=== PATIENT | female | born 1955 | race Caucasian/White ===

== ENCOUNTER 2016-08-10 14:44 | Observation (INO) | payer OTHER ==
[2016-08-10] VITALS (8 sets, daily range): BP systolic 131–177; BP diastolic 71–81; PULSE 66–103; RESP 15–18; TEMP 97.6–98.2; O2SAT 96–99
[~2016-08-10 14:44] MED LIST: ALL220TA PO; BLACK COHOSH; CALC648T PO; FISH1000 PO; FLAXMIS; TAB-TAB PO; [UNRECOGNIZED DRUG - OTHER]
[2016-08-10] MEDS ORDERED: MULT1TAB46 PO (15:04)
[2016-08-10] MEDS ORDERED: MONT10TA2 PO (15:04)
--- NOTE | 2016-08-10 15:37 | PD ---
HPI Chief Complaint: Hypertension Time Seen by Provider: 15:17 Travel History International Travel<30 days: No Contact w/Intl Traveler<30days: No Traveled to known affect area: No History of Present Illness HPI The patient was seen and examined in the presence of the nurse. At 1:10 PM today this patient developed some aching across her jaw. She felt somewhat lightheaded and clammy at this time. She did not have any actual chest pain or pressure or tightness or heaviness. Things lasted about 5-10 minutes and resolve spontaneously. There were no alleviating factors. This was not exertionally induced. Severity was moderate. She has no history of cardiac disease. Never had stress testing. No history of jaw problems or injury or TMJ syndrome PFSH Past Medical History Medical History: Denies Significant Hx Diminished Hearing: No Influenza Vaccination: Yes ?: Not Menopausal: Yes Past Surgical History Oral Surgery: Yes (WISDOM TEETH) Other Surgery: Yes (EAR SURGERY AT AGE OF 12, PARATHYROID) Social History Alcohol Use: Yes (SOCIALLY) Tobacco Use: No Substance Use: No Allergies-Medications (Allergen,Severity, Reaction): Coded Allergies: Codeine (Verified Allergy, Severe, Nausea/Vomiting, 08/10/16) Reported Meds & Prescriptions Reported Meds & Active Scripts Active Reported Multi Vitamin Daily (Multiple Vitamin) 1 Tab Tab 1 Tab-Cap PO DAILY Singulair (Montelukast Sodium) 10 Mg Tab 10 Mg PO HS Review of Systems General / Constitutional: No: Fever Eyes: No: Visual changes HENT: Positive: Lightheadedness, No: Headaches Cardiovascular: No: Chest Pain or Discomfort Respiratory: No: Shortness of Breath Gastrointestinal: No: Abdominal Pain Genitourinary: No: Dysuria Musculoskeletal: Positive: Pain Skin: No Rash Neurologic: No: Weakness Psychiatric: No: Depression Endocrine: No: Polydipsia Hematologic/Lymphatic: No: Easy Bruising Physical Exam Narrative GENERAL: Well-nourished, well-developed patient in no apparent distress. SKIN: Focused skin assessment reveals no rash and nodules. Skin is Warm and dry. HEAD: Atraumatic. Normocephalic. EYES: Pupils equal and round. No scleral icterus. No injection or drainage. ENT: No nasal bleeding or discharge. Mucous membranes pink and moist. NECK: Trachea midline. No JVD. CARDIOVASCULAR: Regular rate and rhythm. No murmur appreciated. RESPIRATORY: No accessory muscle use. Clear to auscultation. Breath sounds equal bilaterally. GASTROINTESTINAL: Abdomen soft, non-tender, nondistended. Hepatic and splenic margins not palpable. MUSCULOSKELETAL: No obvious deformities. No clubbing. No cyanosis. No edema. NEUROLOGICAL: Awake and alert. No obvious cranial nerve deficits. Motor grossly within normal limits. Normal speech. PSYCHIATRIC: Appropriate mood and affect; insight and judgment normal. Data Data Last Documented VS Vital Signs Date Time Temp Pulse Resp B/P Pulse Ox O2 Delivery O2 Flow Rate FiO2 08/10/16 17:26 81 16 143/75 99 Room Air 08/10/16 16:50 97.8 Orders Electrocardiogram (08/10/16 15:33) Basic Metabolic Panel (Bmp) (08/10/16 15:33) Ckmb (Isoenzyme) Profile (08/10/16 15:33) Complete Blood Count With Diff (08/10/16 15:33) Prothrombin Time / Inr (Pt) (08/10/16 15:33) Act Partial Throm Time (Ptt) (08/10/16 15:33) Troponin I (08/10/16 15:33) Chest, Single Ap (08/10/16 15:33) Ecg Monitoring (08/10/16 15:33) Iv Access Insert/Monitor (08/10/16 15:33) Oximetry (08/10/16 15:33) Aspirin (Aspirin) (08/10/16 15:45) Sodium Chloride 0.9% Flush (Ns Flush) (08/10/16 15:45) Admit Order (Ed Use Only) (08/10/16 17:28) Labs Laboratory Tests Test 08/10/16 15:30 White Blood Count 8.2 TH/MM3 Red Blood Count 4.98 MIL/MM3 Hemoglobin 14.3 GM/DL Hematocrit 41.8 % Mean Corpuscular Volume 84.0 FL Mean Corpuscular Hemoglobin 28.7 PG Mean Corpuscular Hemoglobin 34.1 % Concent Red Cell Distribution Width 13.4 % Platelet Count 264 TH/MM3 Mean Platelet Volume 9.0 FL Neutrophils (%) (Auto) 60.6 % Lymphocytes (%) (Auto) 29.3 % Monocytes (%) (Auto) 7.4 % Eosinophils (%) (Auto) 1.9 % Basophils (%) (Auto) 0.8 % Neutrophils # (Auto) 5.0 TH/MM3 Lymphocytes # (Auto) 2.4 TH/MM3 Monocytes # (Auto) 0.6 TH/MM3 Eosinophils # (Auto) 0.2 TH/MM3 Basophils # (Auto) 0.1 TH/MM3 CBC Comment DIFF FINAL Differential Comment Prothrombin Time 9.8 SEC Prothromb Time International 0.9 RATIO Ratio Activated Partial 23.7 SEC Thromboplast Time Sodium Level 143 MEQ/L Potassium Level 3.7 MEQ/L Chloride Level 109 MEQ/L Carbon Dioxide Level 25.7 MEQ/L Anion Gap 8 MEQ/L Blood Urea Nitrogen 12 MG/DL Creatinine 1.10 MG/DL Estimat Glomerular Filtration 51 ML/MIN Rate Random Glucose 105 MG/DL Calcium Level 8.8 MG/DL Total Creatine Kinase 49 U/L Troponin I LESS THAN 0.02 NG/ML MDM Medical Decision Making Medical Screen Exam Complete: Yes Emergency Medical Condition: Yes Medical Record Reviewed: Yes Differential Diagnosis Differential diagnosis includes [place], angina, pericarditis, pleurisy, GERD, anxiety. Narrative Course I have reviewed the patient's electronic medical record. IV placed I reviewed the EKG which shows sinus rhythm but no ST elevation I reviewed the chest x-ray which is normal Extended cardiac monitoring shows sinus rhythm without ectopy CBC is normal Metabolic profile is normal CK is normal Troponin is normal Coagulation studies are normal I gave her an aspirin Workup is negative but this is suspicious for an anginal variant. He is a hypertensive smoker so has multiple risk factors. She is agreeable to chest pain center observation to rule out cardiac cause of her symptoms. Diagnosis Primary Impression: Chest pain at rest Additional Impressions: Hypertension Qualified Code: I10 - Essential hypertension Smoker Admitting Information Admitting Physician Requests: Observation Mendez Matias MD August 10, 2016 15:37
[2016-08-10] MEDS ORDERED: SODIUM CHLORIDE 0.9% FLUSH 10 ML FLUSH IVF PRN (15:45)
[2016-08-10] MEDS ORDERED: ASPIRIN 325 MG TAB PO ONE (15:45)
--- NOTE | 2016-08-10 15:53 | RADRPT ---
EXAM DATE/TIME: 08/10/2016 15:44 [facility] COMPARISON: No previous studies available for comparison. INDICATIONS : Palpitations, jaw pain MEDICAL HISTORY : None. SURGICAL HISTORY : None. ENCOUNTER: Initial ACUITY: 1 day PAIN SCORE: 0/10 LOCATION: Bilateral chest FINDINGS: A single view of the chest demonstrates the lungs to be symmetrically aerated without evidence of mas s, infiltrate or effusion. The cardiomediastinal contours are unremarkable. Osseous structures are intact. CONCLUSION: No acute disease. Jt Gil MD on August 10, 2016 at 15:50 Board Certified Radiologist. This report was verified electronically.
[2016-08-10 15:54] LABS: BASOPHIL # 0.1 TH/MM3 (0-0.2); BASOPHIL % 0.8 % (0.0-2.0); EOSINOPHIL # 0.2 TH/MM3 (0-0.4); EOSINOPHIL % 1.9 % (0.0-4.0); HEMATOCRIT 41.8 % (35.0-46.0); HEMO FLAGS DIFF FINAL; LYMPH % 29.3 % (9.0-44.0); LYMPHOCYTE # 2.4 TH/MM3 (1.0-4.8); MEAN CORPUSCULAR HEMOGLOBIN 28.7 PG (27.0-34.0); MEAN CORPUSCULAR HGB CONC 34.1 % (32.0-36.0); MONO % 7.4 % (0.0-8.0); NEUT % 60.6 % (16.0-70.0); PLATELET COUNT 264 TH/MM3 (150-450); RED BLOOD COUNT 4.98 MIL/MM3 (4.00-5.30); RED CELL DISTRIBUTION WIDTH 13.4 % (11.6-17.2); WHITE BLOOD COUNT 8.2 TH/MM3 (4.0-11.0)
[2016-08-10 16:13] LABS: APTT (PATIENT) 23.7 SEC (24.3-30.1); INTERNATIONAL NORMALIZED RATIO 0.9 RATIO; PROTHROMBIN TIME - PATIENT 9.8 SEC (9.8-11.6)
[2016-08-10 16:17] LABS: ANION GAP 8 MEQ/L (5-15); BICARBONATE 25.7 MEQ/L (21.0-32.0); BLOOD UREA NITROGEN 12 MG/DL (7-18); CHLORIDE 109 MEQ/L (98-107); GLOMERULAR FILTRATION RATE 51 ML/MIN (>89); POTASSIUM 3.7 MEQ/L (3.5-5.1); SODIUM (NA) 143 MEQ/L (136-145)
[2016-08-10 16:18] LABS: CREATINE KINASE 49 U/L (26-192)
[2016-08-10] MEDS ORDERED: ONDANSETRON HCL 4 MG/2 ML VIAL IV PRN (17:45)
[2016-08-10 19:08] LABS: CREATINE KINASE 46 U/L (26-192)
[2016-08-10 23:34] LABS: CREATINE KINASE 45 U/L (26-192)
[2016-08-11 03:25] VITALS: BP 126/57; PULSE 73; RESP 18; TEMP 98.8; O2SAT 97
[2016-08-11 04:00] VITALS: PULSE 82
[2016-08-11 07:52] VITALS: BP 121/71; PULSE 65; RESP 20; TEMP 97.3; O2SAT 94
--- NOTE | 2016-08-11 07:55 | HHI.HP ---
[facility] Primary Care Physician Irma Mendosa MD Chief Complaint Chest pain and hypertension History of Present Illness 60-year-old female without significant medical history presents to emergency room for further evaluation elevated heart rate and elevated blood pressure. Onset yesterday afternoon. States she drank unsweet tea for lunch noting she normally does not drink caffeine. Elevated heart rate lasted a couple of hours , she related elevated heart rate to caffeine use. After after this time her heart continued to racing noting her heart rate was in the 150s. She is unsure if heart rate was regular or irregular. This prompted her to take her blood pressure noticed her SBP [id number]. No feeling of palpitations. Later in the evening she developed an ache in her left jaw. Pain in her jaw lasted approximately 5 minutes. She has never had pain in her jaw before. Combined events prompted her to come the ER. Denied any chest pain other than discomfort related to her heart racing. No known precipitating or relieving factors. No associated symptoms of nausea, vomiting, or diaphoresis. Review of Systems General: No fatigue,weakness, fever, chills, recent illness, or change in appetite. Has been in her general state of health. Endorses over the last year she becomes shortness of breath after 5 minutes of ambulation. Denies any chest discomfort with exertion or during episodes of shortness of breath. Follows with her PCP regarding this. She is been given an inhaler to use as needed. Uses inhaler twice daily over past 2 weeks. She relates this to increase of allergy symptoms. HEENT: Occasional nasal congestion she relates to allergies. No VENEGAS, no vision changes, no dysphasia CV: As stated above. No chest pain or pressure. No feelings of palpitations, intermittent leg pain or dizziness. RESP: Exertional shortness of breath times one year. States walking 5 minutes causes her to become short of breath, that quickly resolves with rest. No recent, cough or wheeze. Diagnosed with asthma related to allergy symptoms 1 year ago. Given an albuterol inhaler for when necessary use. GI: No nausea, vomiting, bowel changes, diarrhea, constipation, pain, or blood in stool. No change in appetite, no unintentional weight gain or weight loss. : No dysuria, urgency, frequency EXT: Chronic bilateral lower leg dependent edema right greater than left over past few months. No numbness, tingling, or paraesthesias of extremities. MS: No discomfort or change in ROM NEURO: No change in memory, dizziness, difficulty with balance, LOC, motor/ sensory deficits PSYCH: No anxiety, depression SKIN: No rashes, no concerning lesions Past Family Social History Allergies: Coded Allergies: Codeine (Verified Allergy, Severe, Nausea/Vomiting, 08/10/16) Past Medical History Asthma Past Surgical History Parathyroidectomy, wisdom teeth extraction Reported Medications Active Reported Multi Vitamin Daily (Multiple Vitamin) 1 Tab Tab 1 Tab-Cap PO DAILY Singulair (Montelukast Sodium) 10 Mg Tab 10 Mg PO HS Active Ordered Medications Current Medications Medications (Trade) Dose Ordered Sig/Celsa Route Start Time Stop Time Status Last Admin (Zofran Inj) 4 mg Q6H PRN IV 08/10/16 17:45 (Aspirin) 325 mg DAILY PO 08/11/16 09:00 Family History Noncontributory for early onset cardiovascular disease. Social History No known diabetes, hyperlipidemia, or hypertension. Lifelong nonsmoker. Denies any alcohol or illegal drug use. 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 Past cardiac testing None Physical Exam Vital Signs Vital Signs Date Time Temp Pulse Resp B/P Pulse Ox O2 Delivery O2 Flow Rate FiO2 08/11/16 07:52 97.3 65 20 121/71 94 08/11/16 04:00 82 08/11/16 03:25 98.8 73 18 126/57 97 08/10/16 23:37 97.6 66 18 148/76 97 08/10/16 21:01 98 21 08/10/16 19:27 97.8 67 18 131/71 97 08/10/16 17:26 81 16 143/75 99 Room Air 08/10/16 16:50 97.8 93 16 156/71 99 Room Air 08/10/16 15:40 17 99 Room Air 08/10/16 15:25 99 17 177/79 98 Room Air 08/10/16 14:59 102 08/10/16 14:56 98.2 103 15 176/81 96 Physical Exam GENERAL: Alert WN, WD, NAD, pleasant, obese, female HEAD: NC, AT CV: RRR, without murmur, rub, gallop, no JVD, S1-S2 no S3-S4. RESP: Clear lungs throughout bilateral, no crackles, wheeze, rhonchi, symmetrical chest rise, nonlabored, able to speak in full sentences ABD: Soft, NT, ND, no masses, positive bowel tones EXT: Pulses +24, +1 pitting, bilateral lower leg edema MS: Normal tone 4 extremities, nontender, no obvious deformities, full range of motion NEURO: CN II through CN XII grossly intact, motor strength 5/5, gait WNL PSYCH: A+O 3, pleasant affect, appropriate speech, appropriate mood and affect , insight and judgment SKIN: Normal turgor, normal texture, no lesions, no rashes, brisk cap refill, even hair distribution Laboratory Laboratory Tests Test 08/10/16 08/10/16 08/10/16 15:30 18:30 22:05 White Blood Count 8.2 Red Blood Count 4.98 Hemoglobin 14.3 Hematocrit 41.8 Mean Corpuscular Volume 84.0 Mean Corpuscular Hemoglobin 28.7 Mean Corpuscular Hemoglobin 34.1 Concent Red Cell Distribution Width 13.4 Platelet Count 264 Mean Platelet Volume 9.0 Neutrophils (%) (Auto) 60.6 Lymphocytes (%) (Auto) 29.3 Monocytes (%) (Auto) 7.4 Eosinophils (%) (Auto) 1.9 Basophils (%) (Auto) 0.8 Neutrophils # (Auto) 5.0 Lymphocytes # (Auto) 2.4 Monocytes # (Auto) 0.6 Eosinophils # (Auto) 0.2 Basophils # (Auto) 0.1 CBC Comment DIFF FINAL Differential Comment Prothrombin Time 9.8 Prothromb Time International 0.9 Ratio Activated Partial 23.7 Thromboplast Time Sodium Level 143 Potassium Level 3.7 Chloride Level 109 Carbon Dioxide Level 25.7 Anion Gap 8 Blood Urea Nitrogen 12 Creatinine 1.10 Estimat Glomerular Filtration 51 Rate Random Glucose 105 Calcium Level 8.8 Total Creatine Kinase 49 46 45 Troponin I LESS THAN 0.02 LESS THAN 0.02 LESS THAN 0.02 Result Diagram: 08/10/16 1530 08/10/16 153 Imaging Last Impressions Chest X-Ray 08/10/16 1533 Signed Impressions: Service Date/Time: July 15:44 - CONCLUSION: No acute disease. Jt Gil MD Course EKGs 3 EKG showed normal sinus rhythm, nonspecific ST changes. Assessment and Plan Assessment and Plan #1 Chest painminute the chest pain center. Ruled out with 3 sets of cardiac enzymes, EKGs, and monitored overnight. Seen and evaluated by Dr. Chepe Paz. Further cardiac testing will include chemical stress test. This is been discussed with patient and at bedside. Both agreeable to plan of care. If stress test unremarkable, will be discharged this afternoon. #2 Asthmaalbuterol every 2 when necessary, continue Singulair #3 Hypertensioninitially she was hypertensive in the ER, she is now normotensive. Continue to monitor. Maggie Gross August 11, 2016 07:55
[2016-08-11 08:00] VITALS: PULSE 67
[2016-08-11] MEDS ORDERED: NITROGLYCERIN 0.4 MG SL 25 TABS/BTL SL PRN (08:00)
[2016-08-11 08:20] VITALS: O2SAT 94
[2016-08-11] MEDS ORDERED: MULTIVITAMIN TAB PO SCH (09:00)
[2016-08-11] MEDS ORDERED: ASPIRIN 325 MG TAB PO SCH (09:00)
[2016-08-11] MEDS ORDERED: ACETAMINOPHEN 500 MG CPLT PO PRN (09:00)
[2016-08-11] MEDS ORDERED: REGADENOSON INJ 0.4 MG/5 ML SYR ONE (10:05)
--- NOTE | 2016-08-11 11:23 | RADRPT ---
EXAM DATE/TIME: 08/11/2016 09:23 [facility] COMPARISON: No previous studies available for comparison. INDICATIONS : Left sided jaw pain with lightheaded and diaphoresis. Angina. DOSE: 35.0 mCi Tc99m Myoview at stress. 11.0 mCi Tc99m Myoview at rest. 0.4 mg Lexiscan STRESS SYMPTOMS: Headache and throat pressure. EJECTION FRACTION: 70% MEDICAL HISTORY : Hypertension. SURGICAL HISTORY : Parathyroidectomy. ENCOUNTER: Initial ACUITY: 1 day PAIN SCALE: 3/10 LOCATION: Left Jaw. TECHNIQUE: The patient underwent pharmacologic stress with infusion of prescribed dose. Continuous ECG tracing was monitored during stress. Gated SPECT imaging was performed after stress and conventional SPECT i maging was performed at rest. The examination was performed on a SPECT/CT scanner, both attenuation and non-corrected datasets were reviewed. FINDINGS: DISTRIBUTION: The maximum perfused segment at stress is in the anterior wall. PERFUSION STUDY: The pattern of perfusion at stress is within normal limits. GATED STUDY: There is intact wall motion and thickening without hypokinetic or dyskinetic segments. CONCLUSION: 1. No reversibility to suggest ischemia. 2. Normal wall motion with ejection fraction 70%. RISK CATEGORY: Low (<1% Annual Mortality Rate) William Lala MD on August 11, 2016 at 11:19 Board Certified Radiologist. This report was verified electronically.
--- NOTE | 2016-08-11 11:58 | HHI.DCPOC ---
Discharge Care Plan Diagnosis: (1) Atypical chest pain Goals to Promote Your Health * To prevent worsening of your condition and complications * To maintain your health at the optimal level Directions to Meet Your Goals Take your medications as prescribed Follow your dietary instruction Follow activity as directed Keep your appointments as scheduled Take your immunizations and boosters as scheduled If your symptoms worsen call your PCP, if no PCP go to Urgent Care Center or Emergency Room Smoking is Dangerous to Your Health. Avoid second hand smoke Call the 24-hour hour crisis hotline for domestic abuse at Maggie Gross August 11, 2016 11:58
--- NOTE | 2016-08-11 12:50 | EKG ---
Date Performed: 08/10/2016 Time Performed: 22:01:16 PTAGE: 60 years EKG: Sinus rhythm NORMAL ECG PREVIOUS TRACING : 08/10/2016 18.27 Since previous tracing, no significant change noted DOCTOR: Chepe Paz Interpretating Date/Time 08/11/2016 12:49:52
--- NOTE | 2016-08-11 12:51 | EKG ---
Date Performed: 08/10/2016 Time Performed: 18:27:05 PTAGE: 60 years EKG: Sinus rhythm NORMAL ECG NO PREVIOUS TRACING DOCTOR: Chepe Paz Interpretating Date/Time 08/11/2016 12:50:29
--- NOTE | 2016-08-11 12:52 | EKG ---
Date Performed: 08/10/2016 Time Performed: 15:04:36 PTAGE: 60 years EKG: Sinus rhythm WITH OCCASIONAL SUPRAVENTRICULAR PREMATURE COMPLEXES NONSPECIFIC T-WAVE ABNORMALITY BORDERLINE ECG PREVIOUS TRACING : 03/02/2010 10.14 Since previous tracing, rate is faster DOCTOR: Chepe Paz Interpretating Date/Time 08/11/2016 12:51:42
--- NOTE | 2016-08-11 12:57 | TR ---
Date Performed: 08/11/2016 Time Performed: 10:08:58 DOCTOR: Chepe Paz DRUG LIST: CLINICAL HISTORY: CHEST PAIN REASON FOR TEST: CHEST PAIN REASON FOR ENDING: OBSERVATION: CONCLUSION: Lexiscan stress test was performed under standard four minute protocol. Radionuclid e was injected one minute prior to ending the test. No electrocardiographic abormalities were present to suggest ischemia. Nuclear imaging and interpretation are pending. COMMENTS:
[2016-08-11] MEDS ORDERED: MONTELUKAST SODIUM 10 MG TAB PO SCH (21:00)
== END 2016-08-11 12:36 | disposition home or self-care (01) ==
LOC: NEPC 14:44 → NEDA 17:32 → NEPHCDU 18:31
PROVIDERS: ADMIT Internal Medicine Cardiovascular Disease; ATTEND Internal Medicine Cardiovascular Disease
DX: R07.9 Chest pain, unspecified (principal); J45.909 Unspecified asthma, uncomplicated; I10 Essential (primary) hypertension; F17.200 Nicotine dependence, unspecified, uncomplicated
CPT/HCPCS: 71010; 78452; 80048; 82550; 84484; 85025; 85610; 85730; 93005; 93017; 99285; A9502; G0378; J2785